=== PATIENT | female | born 1985 | race Caucasian/White ===

== ENCOUNTER 2019-03-18 10:44 | Outpatient (CLI) | payer BC ==
--- NOTE | 2019-03-18 11:28 | RAD ---
2 VIEWS CHEST: Date: 03/18/19 COMPARISON: None. HISTORY: Cough and fever. FINDINGS: There is a focal area of dense consolidative change involving the inferolateral aspect of the right u pper lobe. Left lung is clear. No pneumothorax or pleural fluid. IMPRESSION: Dense area of consolidation in the right upper lobe suspicious for infectious pneumonitis/aspiration. Follow-up imaging following treatment to document resolution advised. POS: [facility]
== END 2019-03-18 10:45 | disposition home or self-care (01) ==
LOC: MADRAD 10:44
PROVIDERS: ATTEND Family Medicine
DX: J10.1 Influenza due to other identified influenza virus with other respiratory manifestations (principal); J98.4 Other disorders of lung
CPT/HCPCS: 71046